=== PATIENT | female | born 1970 | race Caucasian/White ===

== ENCOUNTER 2024-05-13 14:14 | Observation (INO) | payer SELFPAY ==
[~2024-05-13 14:14] MED LIST: Iopamidol-370 76% 500 ML MDV (1 ML CHARGE) ONE
[2024-05-13 15:19] LABS: #Basophils 0.07 10x3/uL (0.0-0.2); %Basophils 1.1 % (0.0-1.0); %Eosinophils 1.3 % (0.0-10.0); %Lymphocytes 21.9 % (21.0-51.0); %Monocytes 8.9 % (0.0-10.0); %Neutrophils 62.8 % (42.0-75.0); Hematocrit 41.8 % (36.0-47.0); Hemoglobin 14.2 g/dL (12.0-16.0); Mean Corpuscular Hemoglobin 31.4 pg (27.0-31.0); Mean Corpuscular Volume 92.5 fL (78.0-98.0); Mean Platelet Volume 10.1 fL (7.4-10.4); Platelet Count 124 10x3/uL (130-400); RBC Distribution Width 18.3 % (11.5-14.5); Red Blood Cell (RBC) Count 4.52 mill/uL (4.20-5.40)
[2024-05-13 15:33] LABS: ALT (SGPT) 75 U/L (8-55); AST (SGOT) 268 U/L (5-34); Albumin 2.2 g/dL (3.5-5.0); Alkaline Phosphatase 463 U/L (40-110); Anion Gap 12 mmol/L (10-20); BUN (Urea Nitrogen) 25 mg/dL (9.8-20.1); Bilirubin, Total 5.9 mg/dL (0.2-1.2); Calc. Creatinine Clearance 0 mL/min (70-130); Carbon Dioxide 25 mmol/L (22-29); Chloride 102 mmol/L (98-107); Estimated GFR 82; Globulin 4.5 g/dL (2.4-3.5); Glucose 118 mg/dL (70-105); Lipase 44 U/L (8-78); Potassium 3.8 mmol/L (3.5-5.1); Protein, Total 6.7 g/dL (6.0-8.3); Sodium 135 mmol/L (136-145)
[2024-05-13 15:35] LABS: INR-International Normal Ratio 1.3; Prothrombin Time 16.4 sec (12.0-14.7)
[2024-05-13 15:36] LABS: PTT 39.7 sec (22.9-36.1)
[2024-05-13] MEDS ORDERED: Morphine 2 MG/ML VIAL ONE (17:44)
[2024-05-13] MEDS ORDERED: Ondansetron PF 4 MG/2 ML Vial ONE (17:45)
[2024-05-13] MEDS ORDERED: Acetaminophen 325 MG TAB PO PRN (19:50)
[2024-05-13] MEDS ORDERED: Senokot S 8.6-50 MG TAB PO PRN (19:59)
[2024-05-13 21:00] VITALS: BMI 32.5
[2024-05-13] MEDS ORDERED: Furosemide 20 MG TAB PO SCH (21:00)
[2024-05-13] MEDS ORDERED: Non-Formulary Item 1 EACH (Spironolactone [Spironolactone] 50 MG Tablet) PO SCH (21:00)
[2024-05-13] MEDS: Famotidine 20 MG TAB PO SCH (21:08)
[2024-05-13] MEDS: Heparin 5,000 UNITS/ML VIAL SC SCH (21:09)
[2024-05-13] MEDS: Morphine 4 MG/ML VIAL SLOW IVP PRN (21:41)
[2024-05-13] MEDS: Spironolactone 100 MG TAB PO SCH (21:45)
[2024-05-13 22:12] LABS: Bilirubin, Direct 3.8 mg/dL (0.1-0.3); Bilirubin, Total 5.6 mg/dL (0.2-1.2)
[2024-05-14 05:49] LABS: ALT (SGPT) 73 U/L (8-55); AST (SGOT) 263 U/L (5-34); Albumin 2.1 g/dL (3.5-5.0); Alkaline Phosphatase 414 U/L (40-110); Anion Gap 12 mmol/L (10-20); BUN (Urea Nitrogen) 22 mg/dL (9.8-20.1); Bilirubin, Total 5.7 mg/dL (0.2-1.2); Calc. Creatinine Clearance 125 mL/min (70-130); Calcium 8.9 mg/dL (7.8-10.44); Carbon Dioxide 23 mmol/L (22-29); Chloride 102 mmol/L (98-107); Estimated GFR 102; Globulin 4.2 g/dL (2.4-3.5); Glucose 94 mg/dL (70-105); Potassium 4.8 mmol/L (3.5-5.1); Protein, Total 6.3 g/dL (6.0-8.3); Sodium 132 mmol/L (136-145)
[2024-05-14 05:53] LABS: #Basophils 0.06 10x3/uL (0.0-0.2); %Basophils 1.1 % (0.0-1.0); %Eosinophils 0.7 % (0.0-10.0); %Lymphocytes 20.1 % (21.0-51.0); %Monocytes 7.3 % (0.0-10.0); %Neutrophils 67.3 % (42.0-75.0); Hematocrit 40.1 % (36.0-47.0); Hemoglobin 13.5 g/dL (12.0-16.0); Mean Corpuscular HGB CONC 33.7 g/dL (32.0-36.0); Mean Corpuscular Hemoglobin 31.6 pg (27.0-31.0); Mean Corpuscular Volume 93.9 fL (78.0-98.0); Mean Platelet Volume 10.9 fL (7.4-10.4); Platelet Count 110 10x3/uL (130-400); Red Blood Cell (RBC) Count 4.27 mill/uL (4.20-5.40)
[2024-05-14] MEDS: Ondansetron ODT 4 MG TAB PO PRN (08:46)
[2024-05-14] MEDS: Furosemide 40 MG TAB PO SCH (08:47)
[2024-05-14] MEDS: Lorazepam 0.5 MG TAB PO PRN (08:47)
[2024-05-14 13:37] LABS: Fluid, LDH 33 U/L (Not Available); Fluid, Protein Less than 0.8 g/dL (Not Available)
[2024-05-14 14:20] LABS: RBC Count-Automated (BF) 11 /cu.mm; WBC/Nucleated-Auto (BF) 193 /cu.mm
[2024-05-14 14:22] LABS: Body Fluid Source Peritoneal Fluid; Tube # EDTA
[2024-05-14 14:23] LABS: BF Color Yellow; Clarity Hazy (Clear)
[2024-05-14 15:43] LABS: BF Segmented Neutrophils 2 %; Cell Count Non Hematic 82 %; Lymphocytes 16 %
[2024-05-15 06:24] LABS: Hematocrit 37.4 % (36.0-47.0); Hemoglobin 12.8 g/dL (12.0-16.0); Mean Corpuscular HGB CONC 34.2 g/dL (32.0-36.0); Mean Corpuscular Volume 90.6 fL (78.0-98.0); Platelet Count 106 10x3/uL (130-400); RBC Distribution Width 18.6 % (11.5-14.5); Red Blood Cell (RBC) Count 4.13 mill/uL (4.20-5.40)
[2024-05-15 06:35] LABS: ALT (SGPT) 70 U/L (8-55); AST (SGOT) 255 U/L (5-34); Albumin 1.9 g/dL (3.5-5.0); Alkaline Phosphatase 390 U/L (40-110); Anion Gap 11 mmol/L (10-20); BUN (Urea Nitrogen) 17 mg/dL (9.8-20.1); Bilirubin, Total 5.1 mg/dL (0.2-1.2); Calc. Creatinine Clearance 116 mL/min (70-130); Calcium 8.3 mg/dL (7.8-10.44); Carbon Dioxide 24 mmol/L (22-29); Chloride 102 mmol/L (98-107); Estimated GFR 95; Globulin 3.6 g/dL (2.4-3.5); Glucose 100 mg/dL (70-105); Potassium 3.2 mmol/L (3.5-5.1); Protein, Total 5.5 g/dL (6.0-8.3); Sodium 134 mmol/L (136-145)
[2024-05-15 07:30] LABS: Anisocytosis SLIGHT = 6-15 cells HPF (0-5); Band 5 % (5-11); Eosinophils 4 % (0-10); Lymphocytes 11 % (21-51); Monocytes 8 % (0-10); Neutrophil 71 % (42-75); Nucleated RBC (Manual Ct) 8 % (0); Platelet Adequacy Comment Platelets Decreased; Reactive Lymphocytes 1 % (0-10)
[2024-05-15 07:53] VITALS: BP 127/76; TEMP 97.9
[2024-05-15] MEDS: Bisacodyl 5 MG TAB PO PRN (08:55)
[2024-05-15] MEDS: Potassium Chloride 20 MEQ TAB PO SCH (08:56)
[2024-05-15] MEDS ORDERED: Enoxaparin 40 MG (0.4 mL) SYRINGE SC SCH (09:45)
[2024-05-16] MEDS ORDERED: Enoxaparin 40 MG (0.4 mL) SYRINGE SC SCH (09:00)
== END 2024-05-15 14:59 | disposition home or self-care (01) ==
LOC: ERS 14:14 → T4-B 18:46
PROVIDERS: ADMIT Family Medicine; ATTEND Family Medicine
PROC: 0W9G30Z Drainage of Peritoneal Cavity with Drainage Device, Percutaneous Approach (ICD-10-PCS; principal; 2024-05-13)
DX: K74.60 Unspecified cirrhosis of liver (principal); R18.0 Malignant ascites; C50.911 Malignant neoplasm of unspecified site of right female breast; E80.6 Other disorders of bilirubin metabolism; F41.9 Anxiety disorder, unspecified; R74.01 Elevation of levels of liver transaminase levels; E87.1 Hypo-osmolality and hyponatremia; R16.0 Hepatomegaly, not elsewhere classified; Z90.49 Acquired absence of other specified parts of digestive tract; Z98.51 Tubal ligation status; Z88.0 Allergy status to penicillin; Z88.1 Allergy status to other antibiotic agents; Z88.8 Allergy status to other drugs, medicaments and biological substances; Z79.899 Other long term (current) drug therapy
CPT/HCPCS: 36415; 36416; 74177; 76705; 80053; 82042; 82247; 83615; 83690; 84157; 85025; 85060; 85610; 85730; 88112; 89051; 93005; 96372; 96374; 96375; 96376; G0378; J1644; J2272; J2405; Q0162; Q9967

== ENCOUNTER 2024-05-27 08:46 | Outpatient (CLI) | payer BC | END 2024-05-27 08:47 | disposition home or self-care (01) | LOC: BICMAMMO 08:46 | PROVIDERS: ATTEND Specialist | DX: Z08 Encounter for follow-up examination after completed treatment for malignant neoplasm (principal); N63.10 Unspecified lump in the right breast, unspecified quadrant; Z85.3 Personal history of malignant neoplasm of breast | CPT/HCPCS: 77066; G0279 ==

== ENCOUNTER 2024-05-29 14:01 | Day surgery (SDC) | payer BC ==
[2024-05-29] MEDS ORDERED: Lidocaine 1% PF 5 ML VIAL ONE (14:05)
[2024-05-29] MEDS ORDERED: Sodium Bicarbonate 2.5 MEQ/5 ML SDV ONE (14:05)
== END 2024-05-29 16:00 | disposition home or self-care (01) ==
LOC: ULT 14:01
PROVIDERS: ATTEND Internal Medicine Hematology & Oncology
PROC: 0W9G30Z Drainage of Peritoneal Cavity with Drainage Device, Percutaneous Approach (ICD-10-PCS; principal; 2024-05-29)
DX: R18.8 Other ascites (principal); Z88.0 Allergy status to penicillin; Z88.8 Allergy status to other drugs, medicaments and biological substances
CPT/HCPCS: 49083

== ENCOUNTER 2024-06-01 23:27 | Inpatient (IN) | payer BC ==
[~2024-06-01 23:27] MED LIST changes: +Iopamidol 370 76% 100 ML VIAL ONE; -Iopamidol-370 76% 500 ML MDV (1 ML CHARGE) ONE
[2024-06-02 00:07] LABS: Hematocrit 41.1 % (36.0-47.0); Mean Corpuscular HGB CONC 36.5 g/dL (32.0-36.0); Mean Corpuscular Hemoglobin 31.8 pg (27.0-31.0); Mean Corpuscular Volume 87.3 fL (78.0-98.0); Mean Platelet Volume 10.3 fL (7.4-10.4); Platelet Count 63 10x3/uL (130-400); Red Blood Cell (RBC) Count 4.71 mill/uL (4.20-5.40)
[2024-06-02 00:20] LABS: ALT (SGPT) 98 U/L (8-55); AST (SGOT) 300 U/L (5-34); Albumin 2.1 g/dL (3.5-5.0); Alkaline Phosphatase 558 U/L (40-110); Anion Gap 17 mmol/L (10-20); BUN (Urea Nitrogen) 44 mg/dL (9.8-20.1); Bilirubin, Total 20.2 mg/dL (0.2-1.2); Calc. Creatinine Clearance 0 mL/min (70-130); Calcium 11.5 mg/dL (7.8-10.44); Carbon Dioxide 23 mmol/L (22-29); Chloride 86 mmol/L (98-107); Estimated GFR 42; Globulin 4.7 g/dL (2.4-3.5); Glucose 101 mg/dL (70-105); Lipase 113 U/L (8-78); Potassium 4.3 mmol/L (3.5-5.1); Protein, Total 6.8 g/dL (6.0-8.3); Sodium 122 mmol/L (136-145)
[2024-06-02 02:02] LABS: Anisocytosis SLIGHT = 6-15 cells HPF (0-5); Band 4 % (5-11); Burr Cells MODERATE= 6-15 cells HPF (0-1); Lymphocytes 10 % (21-51); Metamyelocyte 2 % (0-0); Microcytosis SLIGHT = 6-15 cells HPF (0-5); Monocytes 9 % (0-10); Myelocyte 1 % (0-0); Neutrophil 74 % (42-75); Nucleated RBC (Manual Ct) 17 % (0); Platelet Adequacy Comment Platelets Decreased; Poikilocytosis SLIGHT = 6-15 cells HPF (0-5); Polychromasia SLIGHT = 2-3 cells HPF (0-2); Promyelocytes 1 % (0-0); Target Cells SLIGHT = 2-5 cells HPF (0-1)
[2024-06-02] MEDS ORDERED: Ondansetron PF 4 MG/2 ML Vial IVP PRN (02:12)
[2024-06-02] MEDS ORDERED: Ondansetron ODT 4 MG TAB PO PRN (02:12)
[2024-06-02] MEDS: Sodium Chloride 0.9% 1,000 ML IV SCH (02:43)
[2024-06-02] MEDS: Fleet Saline Enema 133 ML BOT PR SCH (02:43)
[2024-06-02] MEDS: cefTRIAXone\\ROCEPHIN 1 GM in Sodium Chloride 0.9% 100 ML IVPB SCH (02:43)
[2024-06-02] MEDS: Albumin 25% 25 GM (100 mL) BOT IVPB SCH ×2 (02:43→06:58)
[2024-06-02 02:56] VITALS: BMI 30.8
[2024-06-02 04:18] LABS: Hematocrit 34.5 % (36.0-47.0); Hemoglobin 12.5 g/dL (12.0-16.0); Mean Corpuscular HGB CONC 36.2 g/dL (32.0-36.0); Mean Corpuscular Volume 88.2 fL (78.0-98.0); Mean Platelet Volume 9.2 fL (7.4-10.4); Platelet Count 60 10x3/uL (130-400); RBC Distribution Width 20.9 % (11.5-14.5); Red Blood Cell (RBC) Count 3.91 mill/uL (4.20-5.40)
[2024-06-02 04:21] LABS: Prothrombin Time 22.9 sec (12.0-14.7)
[2024-06-02 04:22] LABS: PTT 49.4 sec (22.9-36.1)
[2024-06-02 04:49] LABS: ALT (SGPT) 79 U/L (8-55); AST (SGOT) 244 U/L (5-34); Albumin 1.7 g/dL (3.5-5.0); Alkaline Phosphatase 439 U/L (40-110); Anion Gap 15 mmol/L (10-20); BUN (Urea Nitrogen) 44 mg/dL (9.8-20.1); Bilirubin, Total 16.1 mg/dL (0.2-1.2); Calc. Creatinine Clearance 68 mL/min (70-130); Calcium 10.5 mg/dL (7.8-10.44); Carbon Dioxide 21 mmol/L (22-29); Chloride 90 mmol/L (98-107); Estimated GFR 53; Globulin 3.6 g/dL (2.4-3.5); Glucose 85 mg/dL (70-105); Potassium 3.9 mmol/L (3.5-5.1); Protein, Total 5.3 g/dL (6.0-8.3); Sodium 122 mmol/L (136-145)
[2024-06-02 04:53] LABS: Lactic Acid 1.88 mmol/L (0.5-2.2)
[2024-06-02 05:03] LABS: Anisocytosis SLIGHT = 6-15 cells HPF (0-5); Band 10 % (5-11); Burr Cells SLIGHT = 2-5 cells HPF (0-1); Lymphocytes 11 % (21-51); Metamyelocyte 1 % (0-0); Microcytosis SLIGHT = 6-15 cells HPF (0-5); Monocytes 6 % (0-10); Neutrophil 71 % (42-75); Nucleated RBC (Manual Ct) 28 % (0); Platelet Adequacy Comment Platelets Decreased; Polychromasia SLIGHT = 2-3 cells HPF (0-2); Target Cells SLIGHT = 2-5 cells HPF (0-1); Tear Drops SLIGHT = 2-5 cells HPF (0-1)
[2024-06-02] MEDS: Famotidine 20 MG TAB PO SCH (09:20)
[2024-06-02] MEDS: Famotidine/PF 20 mg/2ml Vial SLOW IVP SCH (10:59)
[2024-06-02] MEDS ORDERED: Bisacodyl 5 MG TAB PO PRN (16:07)
[2024-06-02 17:59] LABS: Prothrombin Time 31.6 sec (12.0-14.7)
[2024-06-02] MEDS ORDERED: Lorazepam 2 MG/ML VIAL SLOW IVP PRN (18:04)
[2024-06-02 18:08] LABS: Hematocrit 24.4 % (36.0-47.0); Hemoglobin 8.7 g/dL (12.0-16.0); Platelet Count 44 10x3/uL (130-400)
[2024-06-02] MEDS: Bisacodyl 5 MG TAB PO SCH (19:11)
[2024-06-02] MEDS: Senokot S 8.6-50 MG TAB PO SCH (19:49)
[2024-06-02] MEDS: Morphine 4 MG/ML VIAL SLOW IVP PRN (20:48)
[2024-06-03] MEDS ORDERED: Lorazepam 0.5 MG TAB PO PRN (06:02)
[2024-06-03 12:02] VITALS: TEMP 97.8
== END 2024-06-03 16:20 | disposition hospice, home (50) | DRG 435 ==
LOC: ERS 23:27 → IMCU/EMU 06-02 01:35
PROVIDERS: ADMIT Student in an Organized Health Care Education/Training Program; ATTEND Internal Medicine
PROC: 30233N1 Transfusion of Nonautologous Red Blood Cells into Peripheral Vein, Percutaneous Approach (ICD-10-PCS; principal; 2024-06-02)
PROC: 30233K1 Transfusion of Nonautologous Frozen Plasma into Peripheral Vein, Percutaneous Approach (ICD-10-PCS; 2024-06-02)
PROC: 30233J1 Transfusion of Nonautologous Serum Albumin into Peripheral Vein, Percutaneous Approach (ICD-10-PCS; 2024-06-02)
DX: C78.7 Secondary malignant neoplasm of liver and intrahepatic bile duct (principal); K72.00 Acute and subacute hepatic failure without coma; K76.7 Hepatorenal syndrome; D62 Acute posthemorrhagic anemia; E87.1 Hypo-osmolality and hyponatremia; N17.9 Acute kidney failure, unspecified; K74.60 Unspecified cirrhosis of liver; D69.6 Thrombocytopenia, unspecified; Z66 Do not resuscitate; K59.00 Constipation, unspecified; K76.82 Hepatic encephalopathy; C50.911 Malignant neoplasm of unspecified site of right female breast; Z90.49 Acquired absence of other specified parts of digestive tract; Z98.890 Other specified postprocedural states; Z98.51 Tubal ligation status; Z51.5 Encounter for palliative care; Z88.0 Allergy status to penicillin
CPT/HCPCS: 36430; 71045; 74177; 80053; 82140; 82248; 83605; 83690; 85025; 85610; 85730; 86850; 86900; 86901; 87040; 93005; J0696; J2272; J3490; J7030; P9016; P9047; P9059; Q9967